=== PATIENT | female | born 1985 | race Caucasian/White ===

== ENCOUNTER → 2016-07-13 | Outpatient (CLI) | payer OTHER | LOC: OD 14:09 | PROVIDERS: ATTEND Family Medicine | DX: M25.561 Pain in right knee (principal) ==

== ENCOUNTER → 2016-09-16 | Outpatient (CLI) | payer OTHER | LOC: RAD 14:37 | PROVIDERS: ATTEND Family Medicine | DX: M25.561 Pain in right knee (principal); M25.461 Effusion, right knee ==

== ENCOUNTER 2018-05-31 07:24 | Day surgery (SDC) | payer OTHER ==
[2018-05-24 10:09] LABS: HEMATOCRIT 41.2 % (36.0-47.0); HEMOGLOBIN 14.2 g/dL (12.0-15.5); MEAN CORPUSCULAR HEMOGLOBIN 30.9 pg (27.0-33.4); MEAN CORPUSCULAR HGB CONC 34.4 g/dL (32.0-36.0); MEAN CORPUSCULAR VOLUME 90 fl (80-97); PLATELET COUNT 270 10^3/uL (150-450); RED BLOOD COUNT 4.58 10^6/uL (3.72-5.28); WHITE BLOOD COUNT 11.1 10^3/uL (4.0-10.5)
[2018-05-24 10:22] LABS: APPEARANCE,URINE CLEAR; BILIRUBIN,URINE NEGATIVE (NEGATIVE); COLOR,URINE YELLOW; GLUCOSE, URINE NEGATIVE (NEGATIVE); KETONES,URINE NEGATIVE (NEGATIVE); LEUKOCYTE ESTERASE,URINE NEGATIVE (NEGATIVE); NITRITE,URINE NEGATIVE (NEGATIVE); PROTEIN,URINE NEGATIVE (NEGATIVE); URINE SPECIFIC GRAVITY 1.016; UROBILINOGEN,URINE NEGATIVE mg/dL (<2.0)
[2018-05-24 10:29] LABS: ANION GAP 10 (5-19); BLOOD UREA NITROGEN 13 mg/dL (7-20); CALCIUM 9.7 mg/dL (8.4-10.2); CARBON DIOXIDE 29 mmol/L (22-30); CHLORIDE 103 mmol/L (98-107); GLUCOSE 87 mg/dL (75-110); SODIUM 142.4 mmol/L (137-145)
--- NOTE | 2018-05-24 11:20 | EKG REPORT ---
SEVERITY:- ABNORMAL ECG - SINUS RHYTHM VENTRICULAR PREMATURE COMPLEX PROBABLE LEFT ATRIAL ABNORMALITY PROBABLE LEFT VENTRICULAR HYPERTROPHY : Confirmed by: Grady Sinclair 24-May-2018 11:19:18
[~2018-05-31 07:24] MED LIST: CLINDAMYCIN 600 MG/D5W RTU 600 MG/50 ML RTUPB IV ONE; CLINDAMYCIN 600 MG/D5W RTU 600 MG/50 ML RTUPB IV PRN; FENTANYL CITRATE INJ/PF 100 MCG/2 ML AMPUL ONE; HYDROMORPHONE HCL INJ/PF 2 MG/ML AMPULE ONE; LACTATED RINGERS 1000 ML IV PRN; LIDOCAINE 0.5% INJ-PF (5 MG/ML) 50 ML SDV SUBCUT PRN; MIDAZOLAM 2 MG/2 ML INJ ONE; PROPOFOL INJ 200 MG/20 ML VIAL IV ONE
[2018-05-31] MEDS ORDERED: BUPIVACAINE HCL 0.5 % INJ/PF 30 ML SDV ONE (07:53)
[2018-05-31] MEDS ORDERED: PROMETHAZINE HCL INJ 25 MG/1 ML VIAL IV PRN (09:32)
[2018-05-31] MEDS ORDERED: DIPHENHYDRAMINE HCL 50 MG/ML VIAL IV PRN (09:32)
[2018-05-31] MEDS ORDERED: MEPERIDINE HCL/PF INJ 25 MG/1 ML DISP.SYRIN IV PRN (09:32)
[2018-05-31] MEDS ORDERED: FENTANYL CITRATE INJ/PF 100 MCG/2 ML AMPUL IV PRN ×3 (09:32)
--- NOTE | 2018-05-31 09:59 | Discharge Summary ---
Discharge Summary (SDC) - Discharge Final Diagnosis: Right carpal/cubital tunnel Date of Surgery: 05/31/18 Discharge Date: 05/31/18 Condition: Good Treatment or Instructions: Schedule Follow Up w/ Dr. Pedro Pop @ [facility] for Surgery to be seen in 10-14 days or as scheduled [place]: [place]: [place]: May remove dressing on postop day #3, keep incision covered and dry. Ice and elevate May begin finger range of motion attempting to make full fist. Avoid excessive range of motion or pressure along the medial aspect of the elbow Stool softener of choice when on pain medication. Prescriptions: Oxycodone HCl/Acetaminophen [Percocet 5-325 mg Tablet] 1 tab PO Q6 #25 tab Discharge Diet: As Tolerated Respiratory Treatments at Home: Deep Breathing/Coughing Discharge Activity: No Lifting Over 10 Pounds, No Lifting/Push/Pulling Report the Following to Your Physician Immediately: Fever over 101 Degrees, Unusual Bleeding, Redness, Swelling, Warmth, Increased Soreness
--- NOTE | 2018-05-31 09:59 | Operative Report ---
Operative Report DATE OF SURGERY: 05/31/18 PREOPERATIVE DIAGNOSIS: Right carpal tunnel syndrome. Right cubital tunnel syndrome POSTOPERATIVE DIAGNOSIS: Same OPERATION: 1. Right in situ cubital tunnel release. 2. Right endoscopic carpal tunnel release SURGEON: SHANNON CARTAGENA ANESTHESIA: GA COMPLICATIONS: None ESTIMATED BLOOD LOSS: Minimal PROCEDURE: Indication for above procedure: 32-year-old female with complaints of numbness tingling and burning in her right upper extremity. Conservative measures were attempted including bracing and injections without resolution of her symptoms. Patient had electrodiagnostic testing demonstrating severe carpal tunnel syndrome with concomitant cubital tunnel syndrome. We discussed treatment options including continued conservative management versus operative intervention. At that point joint decision was made to proceed with operative treatment. Procedure In Detail: Patient was seen and evaluated in the preoperative holding area. The RIGHT upper extremity was initialized and marked. Patient received 600 mg of clindamycin IV for bacterial prophylaxis. Patient was taken back to the operative room where transferred to the operative table and placed under general anesthesia. Once they were adequately anesthetized and a nonsterile tourniquet was placed on the upper extremity. A surgical team debriefing was performed ensuring all instrumentation was available, the surgical procedure was discussed with possible concerns reviewed. The upper extremity was prepped with chlorhexidine and alcohol and draped in a sterile fashion. A timeout was done identifying correct patient, procedure and extremity everyone in attendance agree with this and verbalized no concerns. The extremity was exsanguinated the tourniquet was inflated to 250 mmHg. A longitudinal skin incision was made centered over the cubital tunnel. Careful dissection was done through the overlying soft tissues any peripheral vasculature was carefully coagulated with bipolar cautery. The branches of the medial antebrachial cutaneous nerve were identified and protected. Once within the confines of the cubital tunnel the ulnar nerve was identified at the proximal aspect of the wound. At this level I carefully released a medial portion of the triceps and the medial intermuscular septum freeing the ulnar nerve proximally of any overlying soft tissue compression. I then continued to track the ulnar nerve distally releasing Blair's fascia. At the level of the FCU aponeurosis between the 2 heads of the FCU muscle the fascia was released relieving any external compression from the ulnar nerve distally past the level of the first motor branch. Via finger dissection there is no remaining palpable fascial bands causing compression proximally or distally. I then freed up the nerve posteriorly ensuring there is no remaining soft tissue bands causing compression. During dissection of the nerve careful attention was directed at avoiding disruption of the ulnar nerve blood supply. Elbow range of motion was then done from full flexion to full extension with full flexion there was no evidence of anterior subluxation of the ulnar nerve from the groove. And thus I determined patient would not require transposition. A transverse skin incision was made just proximal to the wrist flexion crease ulnar to the palmaris longus. Blunt dissection was performed down to the palmaris longus tendon which was retracted radially. Deep to the palmaris longus tendon was the volar carpal ligament this was incised identifying the median nerve deep. With the use of a Chevak elevator any soft tissue/synovium was freed from the undersurface of the transverse carpal ligament. The hook of hamate was identified ulnarly. The ConMed cannulas were then introduced beginning with #1 progressing to a #3 gently dilating the carpal canal. I then introduced the scope within the cannula and identified transverse carpal ligament ensuring the median nerve was not visualized within the cannula. I triangulated distally with a 25-gauge needle identifying the distal aspect of the transverse carpal ligament, to ensure protection of the superficial palmar arch. The arthroscopic knife was used to incise the transverse carpal ligament under direct visualization with the arthroscopic camera. Any excess transverse fibers that remained after the first past were carefully released with a repeat pass. The median nerve was then directly visualized radially without disruption. Once this was completed I placed the #3 dilator and assured I got complete release of the transverse carpal ligament without residual compression. The median nerve was directly visualized and free of any overlying compression. I then turned my attention to release of the volar antebrachial fascia proximally. Once again a Chevak was used to open the wound and I proceeded with cannula #1 to #3. The arthroscope was introduced into the cannula and under direct visualization the volar antebrachial fascia was released. Once this was complete I copiusly irrigated the wound with normal saline. The skin incision was closed with 4-0 Monocryl subcutaneous and a running subcuticular 4-0 Monocryl. This was reinforced with Dermabond and Steri -Strips. Sterile, 4 x 4's and a Demian bandage was placed loosely. Sponge counts, instrument counts, needle counts counts were correct. Patient was then awoken from anesthesia. Transferred from the operating room table to the operating room stretcher. There was no intraoperative complications patient tolerated procedure well stable to PACU. Postoperative plan: Patient will follow-up in the office as scheduled which point we will proceed with wound check. She may begin gentle range of motion exercises but avoid any heavy lifting at her first postoperative appointment.
[2018-05-31] MEDS ORDERED: OXYCODONE-ACETAMINOPHEN 5-325 MG TABLET ONE (10:44)
[2018-05-31 11:48] VITALS: BP 112/72
[2018-05-31] MEDS ORDERED: ONDANSETRON HCL INJ/PF 4 MG/2 ML SDV ONE (13:56)
[2018-05-31] MEDS ORDERED: DEXAMETHASONE SOD PHOSPHATE INJ 4 MG/1 ML VIAL ONE (13:56)
[2018-05-31] MEDS ORDERED: LIDOCAINE 2% INJ-PF (20 MG/ML) 2 ML AMPUL ONE (13:56)
== END 2018-05-31 12:00 | disposition home or self-care (01) ==
LOC: OROUT 07:24
PROVIDERS: ATTEND Orthopaedic Surgery
DX: G56.21 Lesion of ulnar nerve, right upper limb (principal); G56.01 Carpal tunnel syndrome, right upper limb; M65.831 Other synovitis and tenosynovitis, right forearm; M79.644 Pain in right finger(s); G47.33 Obstructive sleep apnea (adult) (pediatric); Z88.0 Allergy status to penicillin; Z79.899 Other long term (current) drug therapy
CPT/HCPCS: 93005; 36415; 85027; 81025; 80048; 81001; 93010; 64718; 29848; J2250; J3490 ×2; J1100; J1170; J2405; J2704; 1810; J3010